=== PATIENT | female | born 1955 ===

== ENCOUNTER 2017-08-18 15:10 | Inpatient (IN) | payer MEDICARE, OTHER ==
[2017-08-18 15:11] VITALS: BMI 23.3
[2017-08-18 15:47] LABS: RBC URINE 1 /hpf (0-3); URINE BACTERIA RARE (<OCC); URINE BILIRUBIN NEGATIVE (NEGATIVE); URINE BLOOD NEGATIVE (NEGATIVE); URINE COLOR Yellow (YELLOW); URINE GLUCOSE (UA) NORMAL (Normal); URINE KETONE NEGATIVE (NEGATIVE); URINE LEUKOCYTE ESTERASE 1+ Leu/uL (Negative); URINE PROTEIN NEGATIVE (NEGATIVE); URINE UROBILINOGEN NORMAL mg/dL (0.2-1.0); WBC URINE 9 /hpf (0-5)
[2017-08-18] MEDS ORDERED: Sodium Chloride 0.9% 500 ML IV STA (16:10)
[2017-08-18] MEDS ORDERED: Sodium Chloride 0.9% 500 ML IV ONE (16:19)
[2017-08-18 16:34] LABS: BASO # 0.1 K/uL (0.0-0.2); BASO % 2.3 % (0.0-2.0); EOS # 0.2 K/uL (0.0-0.7); EOS % 3.7 % (0.0-4.0); HEMATOCRIT 41.9 % (34.0-47.0); LYMPH # 1.7 K/uL (1.0-4.3); LYMPH % 30.1 % (20.0-40.0); MEAN CELL VOLUME 92.5 fL (81.0-99.0); MEAN CORPUSCULAR HEMOGLOBIN 30.9 pg (27.0-31.0); MEAN CORPUSCULAR HGB CONC 33.4 g/dL (33.0-37.0); MEAN PLATELET VOLUME 8.1 fL (7.2-11.7); MONO # 0.4 K/uL (0.0-0.8); MONO % 6.9 % (0.0-10.0); RED CELL DISTRIBUTION WIDTH 13.3 % (11.5-14.5); WHITE BLOOD COUNT 5.8 K/uL (4.8-10.8)
[2017-08-18 16:46] LABS: ALB/GLOB RATIO 1.1 (1.0-2.1); ALKALINE PHOSPHATASE 62 U/L (38-126); ALT/SGPT 32 U/L (9-52); AST/SGOT 19 U/L (14-36); BILIRUBIN,TOTAL 0.5 mg/dL (0.2-1.3); BLOOD UREA NITROGEN 16 mg/dL (7-17); CALCIUM 8.4 mg/dl (8.6-10.4); CARBON DIOXIDE 30 mmol/L (22-30); CHLORIDE 104 mmol/L (98-107); GFR AFRICAN-AMERICAN > 60; GLUCOSE,RANDOM 127 mg/dL (65-105); POTASSIUM 3.6 mmol/L (3.6-5.2); SODIUM 140 mmol/L (132-148); TOTAL PROTEIN 7.2 g/dL (6.3-8.3)
--- NOTE | 2017-08-18 16:52 | C.PDOC ---
History Of Present Illness 61 year old female presents to the ED for evaluation of on going right flank and suprapubic pain for the past few months. Patient states she was seen in the ED for kidney stones in the past, but no record was found. Patient reports traveling to [place] and staying there for months unable to find a flight back. Patient states today pain is worse and that is why decided to come to the ED. Patient denies fever, nausea, vomit, diarrhea, cough. Time Seen by Provider: 08/18/17 15:23 Chief Complaint (Nursing): Back Pain History Per: Patient History/Exam Limitations: no limitations Onset/Duration Of Symptoms: Persistent Current Symptoms Are (Timing): Still Present Quality Of Discomfort: "Pain" Severity: Mild Previous Symptoms: Other (Right flank pain) Recent travel outside of the [place]: No Additional History Per: Patient Past Medical History Reviewed: Historical Data, Nursing Documentation, Vital Signs Vital Signs: Last Vital Signs Temp 97.5 F L 08/18/17 15:13 Pulse 64 08/18/17 17:04 Resp 18 08/18/17 17:04 BP 107/71 08/18/17 17:04 Pulse Ox 99 08/18/17 18:30 - Medical History PMH: Arthritis, Fibromyalgia, Fractures (right hip), Gastritis, Gall Bladder Disease, HTN Denies: Chronic Kidney Disease Surgical History: Appendectomy, Back Surgery, Cholecystectomy, Endoscopy Family History: States: Unknown Family Hx - Social History Hx Alcohol Use: No Hx Substance Use: No - Immunization History Hx Tetanus Toxoid Vaccination: No Hx Influenza Vaccination: Yes (06/2017) Hx Pneumococcal Vaccination: No Review Of Systems Constitutional: Negative for: Fever, Chills Cardiovascular: Negative for: Chest Pain Respiratory: Negative for: Cough, Shortness of Breath Gastrointestinal: Positive for: Abdominal Pain (Right flank pain). Negative for : Nausea, Vomiting Genitourinary: Negative for: Vaginal Discharge, Vaginal Bleeding Skin: Negative for: Rash Neurological: Negative for: Weakness, Numbness Physical Exam - Physical Exam Appears: Non-toxic, No Acute Distress Skin: Normal Color, Warm, Dry Head: Atraumatic, Normacephalic Nose: No Discharge Oral Mucosa: Moist Neck: Normal ROM, Supple Chest: Symmetrical Cardiovascular: Rhythm Regular, No Murmur Respiratory: Normal Breath Sounds, No Rales, No Rhonchi, No Wheezing Gastrointestinal/Abdominal: Soft, Tenderness (Suprapubic), No Guarding, No Rebound Back: CVA Tenderness (Right side) Extremity: Normal ROM, No Pedal Edema, No Deformity, No Swelling Neurological/Psych: Oriented x3, Normal Speech, Normal Cognition Gait: Steady ED Course And Treatment - Laboratory Results Result Diagrams: 08/18/17 16:30 08/18/17 16:30 O2 Sat by Pulse Oximetry: 99 (On RA) Pulse Ox Interpretation: Normal - CT Scan/US CT abdo/pelvis Other Rad Studies (CT/US): Interpreted By Me, Read By Radiologist, Radiology Report Reviewed CT/US Interpretation: PROCEDURE: CT Abdomen and Pelvis without intravenous contrast. HISTORY: Pain. COMPARISON: None. TECHNIQUE: Helical CT of the abdomen and pelvis was performed following oral contrast administration. Intravenous contrast was not administered as per referring physician request. Contrast Dose: None. Radiation dose: Total exam DLP = 535.10 mGy-cm. This CT exam was performed using one or more of the following dose reduction techniques : Automated exposure control, adjustment of the mA and/or kV according to patient size, and/or use of iterative reconstruction technique. FINDINGS: LOWER THORAX: Limited bilateral basilar atelectasis identified. LIVER: Tiny hepatic granuloma seen posteriorly with remainder of the liver appearing grossly nonfocal. GALLBLADDER AND BILE DUCTS: Prior cholecystectomy. PANCREAS : Unremarkable. No gross lesion or ductal dilatation. SPLEEN: Unremarkable. ADRENALS: Unremarkable. No mass. KIDNEYS AND URETERS: Right renal cysts are identified with none on the left. No obstructive uropathy or radiodense urolithiasis bilaterally. No definite perinephric reaction bilaterally. VASCULATURE: Unremarkable. No aortic aneurysm. BOWEL: Stomach is distended with retained food. Evaluation of bowel is limited due to minimal volume oral contrast ingested. No obstruction. No gross mural thickening. APPENDIX: Prior appendectomy suggested. Clinically correlate further. PERITONEUM: Unremarkable. No free fluid. No free air. LYMPH NODES: Unremarkable. No enlarged lymph nodes. BLADDER: Unremarkable. REPRODUCTIVE: Prior hysterectomy suggested. Clinically correlate further. BONES: Status post right total hip replacement. Artifacts obscure imaging through the pelvis. OTHER FINDINGS: None. IMPRESSION: No definite acute abdominal pelvic findings by standard unenhanced CT criteria. Patient status post multiple surgeries in the past including apparent cholecystectomy, hysterectomy and appendectomy with right hip replacement hardware in place. Clinically correlate further. Progress Note: Plan: -CT abdo/pelvis ordered. -Blood work ordered. -IV fluids given. -Urine culture collected. -UA ordered. Patient still c/o pain. Case was d/wPt's PMD who feels that patient failed an outpatient treatment and needs to be placed to Med/surg for observation. Disposition - Disposition Disposition: HOSPITALIZED Disposition Time: 18:30 Condition: FAIR Forms: [employer] (Turkish) - Clinical Impression Clinical Impression: Low back pain, UTI (urinary tract infection) - PA / MSWS / Resident Statement MD/DO has reviewed & agrees with the documentation as recorded. - Scribe Statement The provider has reviewed the documentation as recorded by the Scribe Jonathan Vargas All medical record entries made by the Scribe were at my direction and personally dictated by me. I have reviewed the chart and agree that the record accurately reflects my personal performance of the history, physical exam, medical decision making, and the department course for this patient. I have also personally directed, reviewed, and agree with the discharge instructions and disposition. Decision To Admit - Pt Status Changed To: Hospital Disposition Of: Observation - . Bed Request Type: Regular Admitting Physician: Delmar Ring Jr. Patient Diagnosis: Low back pain, UTI (urinary tract infection)
--- NOTE | 2017-08-18 17:47 | CT ---
PROCEDURE: CT Abdomen and Pelvis without intravenous contrast HISTORY: Pain COMPARISON: None. TECHNIQUE: Helical CT of the abdomen and pelvis was performed following oral contrast administration. Intravenous contrast was not administered as per referring physician request. Contrast Dose: None Radiation dose: Total exam DLP = 535.10 mGy-cm. This CT exam was performed using one or more of the following dose reduction techniques: Automated exposure control, adjustment of the mA and/or kV according to patient size, and/or use of iterative reconstruction technique. FINDINGS: LOWER THORAX: Limited bilateral basilar atelectasis identified. LIVER: Tiny hepatic granuloma seen posteriorly with remainder of the liver appearing grossly nonfocal. GALLBLADDER AND BILE DUCTS: Prior cholecystectomy. PANCREAS: Unremarkable. No gross lesion or ductal dilatation. SPLEEN: Unremarkable. ADRENALS: Unremarkable. No mass. KIDNEYS AND URETERS: Right renal cysts are identified with none on the left. No obstructive uropathy or radiodense urolithiasis bilaterally. No definite perinephric reaction bilaterally. VASCULATURE: Unremarkable. No aortic aneurysm. BOWEL: Stomach is distended with retained food. Evaluation of bowel is limited due to minimal volume oral contrast ingested. No obstruction. No gross mural thickening. APPENDIX: Prior appendectomy suggested. Clinically correlate further. PERITONEUM: Unremarkable. No free fluid. No free air. LYMPH NODES: Unremarkable. No enlarged lymph nodes. BLADDER: Unremarkable. REPRODUCTIVE: Prior hysterectomy suggested. Clinically correlate further. BONES: Status post right total hip replacement. Artifacts obscure imaging through the pelvis. OTHER FINDINGS: None. IMPRESSION: No definite acute abdominal pelvic findings by standard unenhanced CT criteria. Patient status post multiple surgeries in the past including apparent cholecystectomy, hysterectomy and appendectomy with right hip replacement hardware in place. Clinically correlate further.
--- NOTE | 2017-08-18 19:54 | CP.PCM.HP ---
History of Present Illness - History of Present Illness History of Present Illness: CC: Suprapubic pain and bilateral flank pain HPI: Patient is a 61 year old female with past medical history of arthritis, Fibromyalgia, Fractures (right hip), Gastritis, Gall stones, anxiety, depression , lumbar nerve impingement, back lipoma, lupus who presents with suprapubic and bilateral flank pain that has been going on for 1month and 2 weeks. Patient was seen by her PMD, Dr. soto and was treated for UTI. Patient states that 7 years ago she was diagnosed with kidney stones in [place] and the stones were removed. Patient states that after finishing the antibiotics prescribed for her recent UTI, she continues to have suprapubic pain and flank pain, rating it a 8/ 10 on the pain scale. Patient states she had hematuria a month ago and was scheduled to see a urologist. During the encounter, patient states she has pressure upon urinating and urinates small amount and unable to empty her bladder fully. Patient admits to dysuria, pressure with urinating, back pain, shoulder pain, abdominal pain but denies nausea, vomiting, fever and chills. PMD: Dr. Soto PMHx: Arthritis, Fibromyalgia, Fractures (right hip), Gastritis, Gall stones, anxiety, depression, lumbar nerve impingement, back lipoma, lupus PSHx: Appendectomy, Back Surgery, Cholecystectomy, Endoscopy, colonscopy and lipoma removal, right hip replacement FHx: DM, HTN, heart disease Medications: Does not recall Allergies: NKDA Social Hx. denies tobacco, alcohol and illicit drug use Present on Admission - Present on Admission Any Indicators Present on Admission: No Review of Systems - Constitutional Constitutional: absent: Chills, Fever, Headache, Weakness - EENT Eyes: absent: Blurred Vision, Change in Vision - Cardiovascular Cardiovascular: Radiating Pain. absent: Chest Pain, Chest Pain at Rest, Chest Pain with Activity, Dyspnea, Dyspnea on Exertion, Lightheadedness, Palpitations , Pedal Edema - Respiratory Respiratory: absent: Cough, Dyspnea, Dyspnea on Exertion - Gastrointestinal Gastrointestinal: Abdominal Pain. absent: Constipation, Diarrhea, Nausea, Vomiting - Genitourinary Genitourinary: Difficulty Urinating, Dysuria, Flank Pain, Hematuria, Urinary Hesitance, Hx Renal/Bladder Calculi - Reproductive: Female Reproductive:Female: S/P Hysterectomy - Musculoskeletal Musculoskeletal: Arthralgias - Neurological Neurological: absent: Dizziness, Headaches, Syncope, Weakness - Psychiatric Psychiatric: Anxiety - Endocrine Endocrine: absent: Fatigue, Palpitations Past Patient History - Past Medical History & Family History Past Medical History?: Yes - Past Social History Smoking Status: Never Smoked - CARDIAC Hx Hypertension: Yes - PULMONARY Hx Respiratory Disorders: No - NEUROLOGICAL Hx Neurological Disorder: Yes - HEENT Hx HEENT Problems: No - RENAL Hx Chronic Kidney Disease: No - ENDOCRINE/METABOLIC Hx Endocrine Disorders: Yes Hx Systemic Lupus Erythematosus: Yes - HEMATOLOGICAL/ONCOLOGICAL Hx Blood Disorders: No - INTEGUMENTARY Hx Dermatological Problems: No - MUSCULOSKELETAL/RHEUMATOLOGICAL Hx Arthritis: Yes Hx Fractures: Yes (right hip) - GASTROINTESTINAL Hx Gall Bladder Disease: Yes Hx Gastritis: Yes - GENITOURINARY/GYNECOLOGICAL Hx Genitourinary Disorders: No - PSYCHIATRIC Hx Substance Use: No - SURGICAL HISTORY Hx Appendectomy: Yes Hx Cholecystectomy: Yes - ANESTHESIA Hx Anesthesia: Yes Hx Anesthesia Reactions: No Hx Malignant Hyperthermia: No Meds Allergies/Adverse Reactions: Allergies Allergy/AdvReac Type Severity Reaction Status Date / Time No Known Allergies Allergy Verified 08/18/17 15:18 Physical Exam - Constitutional Appears: No Acute Distress - Head Exam Head Exam: ATRAUMATIC - Eye Exam Eye Exam: EOMI, Normal appearance - ENT Exam ENT Exam: Mucous Membranes Dry - Respiratory Exam Respiratory Exam: Clear to Auscultation Bilateral, NORMAL BREATHING PATTERN - Cardiovascular Exam Cardiovascular Exam: REGULAR RHYTHM, +S1, +S2 - GI/Abdominal Exam GI & Abdominal Exam: Normal Bowel Sounds, Soft, Tenderness - Extremities Exam Extremities exam: Positive for: normal inspection. Negative for: calf tenderness, pedal edema - Back Exam Back exam: CVA tenderness (L), CVA tenderness (R) - Neurological Exam Neurological exam: Alert, Oriented x3 - Psychiatric Exam Psychiatric exam: Anxious, Normal Affect - Skin Skin Exam: Normal Color Results - Vital Signs Recent Vital Signs: Last Vital Signs Temp 98.3 F 08/18/17 19:17 Pulse 69 08/18/17 19:17 Resp 18 08/18/17 19:17 BP 125/88 08/18/17 19:17 Pulse Ox 97 08/18/17 19:17 - Labs Result Diagrams: 08/18/17 16:30 08/18/17 16:30 Labs: Laboratory Results - last 24 hr 12/11/3008/18/17 08/18/17 15:33 16:30 16:30 WBC 5.8 RBC 4.53 Hgb 14.0 Hct 41.9 MCV 92.5 D MCH 30.9 MCHC 33.4 RDW 13.3 Plt Count 241 MPV 8.1 Neut % (Auto) 57.0 Lymph % (Auto) 30.1 [place] % (Auto) 6.9 Eos % (Auto) 3.7 Baso % (Auto) 2.3 H Neut # 3.3 Lymph # 1.7 [place] # 0.4 Eos # 0.2 Baso # 0.1 Sodium 140 Potassium 3.6 Chloride 104 Carbon Dioxide 30 Anion Gap 10 BUN 16 Creatinine 0.6 L Est GFR ( Amer) > 60 Est GFR (Non-Af Amer) > 60 Random Glucose 127 H Calcium 8.4 L Total Bilirubin 0.5 AST 19 ALT 32 Alkaline Phosphatase 62 Total Protein 7.2 Albumin 3.8 Globulin 3.4 Albumin/Globulin Ratio 1.1 Urine Color Yellow Urine Clarity Clear Urine pH 5.0 Ur Specific [place] 1.023 Urine Protein Negative Urine Glucose (UA) Normal Urine Ketones Negative Urine Blood Negative Urine Nitrate Negative Urine Bilirubin Negative Urine Urobilinogen Normal Ur Leukocyte Esterase 1+ H Urine WBC (Auto) 9 H Urine RBC (Auto) 1 Ur Squamous Epith Cells 1 Urine Bacteria Rare Assessment & Plan (1) UTI (urinary tract infection) Assessment and Plan: On admission: UA: Negative F/u UC Medications given in the ER: * Rocephin 1gm once * Dilaudid 2gm once Status: Acute (2) Flank pain Assessment and Plan: R/O Nephroliathiasis or obstructive uropathy CT abdomen and pelvis: No definite acute abdominal pelvic findings by standard unenhanced CT criteria. Patient status post multiple surgeries in the past including apparent cholecystectomy, hysterectomy and appendectomy with right hip replacement hardware in place. Clinically correlate further. Right renal cysts are identified with none on the left. No obstructive uropathy or radiodense urolithiasis bilaterally. No definite perinephric reaction bilaterally. Status: Acute (3) Low back pain Assessment and Plan: Dilaudid 0.5mg IV Q6H prn Status: Acute (4) History of hypertension Assessment and Plan: Continue home medications: * Norvasc 10mg PO daily * Valsartan 160mg PO Daily Status: Acute (5) History of gastroesophageal reflux (GERD) Assessment and Plan: Continue home medications: * Protonix 40mg po daily Status: Acute (6) History of psychiatric disorder Assessment and Plan: Continue home medications: * Paxil 60mg PO daily * Klonopin 0.5mg PO TID Status: Acute (7) Prophylactic measure Assessment and Plan: GI: Protonix 40mg PO daily DVT: SCDs Status: Acute
[2017-08-18] MEDS: HYDROmorphone 0.5 mg/0.5 ml ISec IVP PRN (22:30)
[2017-08-19] MEDS ORDERED: Influenza Vaccine 60 mcg/0.5 mL SYR (4YR UP) IM ONE (01:35)
[2017-08-19] MEDS: HYDROmorphone 0.5 mg/0.5 ml ISec IVP PRN ×4 (05:15→23:41)
[2017-08-19 07:43] LABS: BASO % 0.5 % (0.0-2.0); EOS # 0.2 K/uL (0.0-0.7); EOS % 3.8 % (0.0-4.0); LYMPH # 1.8 K/uL (1.0-4.3); LYMPH % 36.2 % (20.0-40.0); MEAN CELL VOLUME 92.3 fL (81.0-99.0); MEAN CORPUSCULAR HEMOGLOBIN 31.5 pg (27.0-31.0); MEAN CORPUSCULAR HGB CONC 34.1 g/dL (33.0-37.0); MEAN PLATELET VOLUME 8.4 fL (7.2-11.7); MONO # 0.4 K/uL (0.0-0.8); MONO % 8.9 % (0.0-10.0); NRBC % 0.2 % (0.0-2.0); RED CELL DISTRIBUTION WIDTH 13.3 % (11.5-14.5); WHITE BLOOD COUNT 4.9 K/uL (4.8-10.8)
[2017-08-19 08:27] LABS: ALB/GLOB RATIO 1.6 (1.0-2.1); ALKALINE PHOSPHATASE 56 U/L (38-126); ALT/SGPT 27 U/L (9-52); AST/SGOT 18 U/L (14-36); BILIRUBIN,TOTAL 0.5 mg/dL (0.2-1.3); BLOOD UREA NITROGEN 10 mg/dL (7-17); CARBON DIOXIDE 29 mmol/L (22-30); CHLORIDE 105 mmol/L (98-107); GFR AFRICAN-AMERICAN > 60; GLUCOSE,RANDOM 113 mg/dL (65-105); MAGNESIUM 1.6 mg/dL (1.6-2.3); PHOSPHOROUS 3.5 mg/dL (2.5-4.5); POTASSIUM 3.9 mmol/L (3.6-5.2); SODIUM 142 mmol/L (132-148); TOTAL PROTEIN 5.7 g/dL (6.3-8.3)
[2017-08-19] MEDS: Pantoprazole 40 mg EC Tab PO SCH (09:46)
--- NOTE | 2017-08-19 13:06 | CP.PCM.PN ---
Subjective - Date & Time of Evaluation Date of Evaluation: 08/19/17 Time of Evaluation: 09:00 - Subjective Subjective: Medicine Note (PGY-1)---> Dr. Ring's note Patient was seen and examined at bedside. Patient still admits to suprapubic pain and not being able to empty her bladder fully. Patient denies chest pain, palpitations, SOB, fever, chills, nausea and vomiting. Objective - Vital Signs/Intake and Output Vital Signs (last 24 hours): Temp Pulse Resp BP Pulse Ox 97.9 F 61 20 102/67 97 08/19/17 08:02 08/19/17 08:02 08/19/17 08:02 08/19/17 08:02 08/19/17 08:02 Intake and Output: 08/19/17 08/19/17 06:59 18:59 Intake Total 200 Balance 200 - Medications Medications: Current Medications Amlodipine Besylate (Norvasc) 10 mg PO DAILY REPLACED BY [facility] Last Admin: 08/19/17 09:44 Dose: 10 mg Clonazepam (Klonopin) 0.5 mg PO TID REPLACED BY [facility] Last Admin: 08/19/17 09:44 Dose: 0.5 mg Hydromorphone HCl (Dilaudid) 0.5 mg IVP Q6H PRN PRN Reason: Pain, severe (8-10) Last Admin: 08/19/17 11:05 Dose: 0.5 mg Ibuprofen (Motrin Tab) 600 mg PO Q4H PRN PRN Reason: Pain, moderate (4-7) Losartan Potassium (Cozaar) 100 mg PO DAILY REPLACED BY [facility] Last Admin: 08/19/17 09:46 Dose: 100 mg Pantoprazole Sodium (Protonix Ec Tab) 40 mg PO DAILY REPLACED BY [facility] Last Admin: 08/19/17 09:46 Dose: 40 mg Paroxetine HCl (Paxil) 60 mg PO DAILY REPLACED BY [facility] Last Admin: 08/19/17 09:45 Dose: 60 mg Pneumococcal Polyvalent Vaccine (Pneumovax 23 Vaccine) 0.5 ml IM .ONCE ONE Stop: 08/21/17 10:01 - Labs Labs: 08/19/17 07:15 08/19/17 07:15 - Constitutional Appears: Well, No Acute Distress - Head Exam Head Exam: ATRAUMATIC - Eye Exam Eye Exam: EOMI, Normal appearance - ENT Exam ENT Exam: Mucous Membranes Moist - Respiratory Exam Respiratory Exam: Clear to Ausculation Bilateral, NORMAL BREATHING PATTERN - Cardiovascular Exam Cardiovascular Exam: REGULAR RHYTHM, +S1, +S2 - GI/Abdominal Exam GI & Abdominal Exam: Soft, Normal Bowel Sounds - Extremities Exam Extremities Exam: Normal Inspection. absent: Calf Tenderness, Pedal Edema - Neurological Exam Neurological Exam: Alert, Awake, Oriented x3 - Psychiatric Exam Psychiatric exam: Normal Affect, Normal Mood - Skin Skin Exam: Normal Color Assessment and Plan (1) UTI (urinary tract infection) Assessment & Plan: On admission: UA: Negative UC: Negative Medications given in the ER: * Rocephin 1gm once * Dilaudid 2gm once Status: Acute (2) Suprapubic pain, acute Assessment & Plan: Urology Consult, Dr. Lucas Gonzalez On admission: UA: Negative UC: Negative Medication/Management: * Pyridium 100mg po daily Status: Acute (3) Overflow incontinence Assessment & Plan: Urology Consult, Dr. Lucas Gonzalez * Management as per recommendation Medication/Management Flomax 0.4mg PO daily Status: Acute (4) Flank pain Assessment & Plan: R/O Nephroliathiasis or obstructive uropathy CT abdomen and pelvis: No definite acute abdominal pelvic findings by standard unenhanced CT criteria. Patient status post multiple surgeries in the past including apparent cholecystectomy, hysterectomy and appendectomy with right hip replacement hardware in place. Clinically correlate further. Right renal cysts are identified with none on the left. No obstructive uropathy or radiodense urolithiasis bilaterally. No definite perinephric reaction bilaterally. Status: Acute (5) Low back pain Assessment & Plan: Dilaudid 0.5mg IV Q6H prn Status: Chronic (6) History of hypertension Assessment & Plan: Continue home medications: * Norvasc 10mg PO daily * Valsartan 160mg PO Daily Status: Acute (7) History of gastroesophageal reflux (GERD) Assessment & Plan: Continue home medications: * Protonix 40mg po daily Status: Acute (8) History of psychiatric disorder Assessment & Plan: Continue home medications: * Paxil 60mg PO daily * Klonopin 0.5mg PO TID Status: Acute (9) Prophylactic measure Assessment & Plan: GI: Protonix 40mg PO daily DVT: SCDs Status: Acute
[2017-08-20 06:43] LABS: BASO % 0.7 % (0.0-2.0); EOS # 0.2 K/uL (0.0-0.7); EOS % 4.2 % (0.0-4.0); HEMATOCRIT 41.7 % (34.0-47.0); LYMPH # 1.7 K/uL (1.0-4.3); LYMPH % 34.8 % (20.0-40.0); MEAN CELL VOLUME 91.9 fL (81.0-99.0); MEAN CORPUSCULAR HEMOGLOBIN 31.5 pg (27.0-31.0); MEAN CORPUSCULAR HGB CONC 34.3 g/dL (33.0-37.0); MEAN PLATELET VOLUME 8.1 fL (7.2-11.7); MONO # 0.4 K/uL (0.0-0.8); NRBC % 0.2 % (0.0-2.0); RED CELL DISTRIBUTION WIDTH 12.9 % (11.5-14.5)
[2017-08-20] MEDS: HYDROmorphone 0.5 mg/0.5 ml ISec IVP PRN ×2 (06:43→12:52)
[2017-08-20 07:01] LABS: ALB/GLOB RATIO 1.1 (1.0-2.1); ALKALINE PHOSPHATASE 75 U/L (38-126); ALT/SGPT 32 U/L (9-52); AST/SGOT 15 U/L (14-36); BILIRUBIN,TOTAL 0.4 mg/dL (0.2-1.3); BLOOD UREA NITROGEN 11 mg/dL (7-17); CALCIUM 8.2 mg/dl (8.6-10.4); CARBON DIOXIDE 32 mmol/L (22-30); CHLORIDE 102 mmol/L (98-107); GFR AFRICAN-AMERICAN > 60; GLUCOSE,RANDOM 108 mg/dL (65-105); MAGNESIUM 1.7 mg/dL (1.6-2.3); PHOSPHOROUS 3.7 mg/dL (2.5-4.5); POTASSIUM 3.7 mmol/L (3.6-5.2); SODIUM 140 mmol/L (132-148); TOTAL PROTEIN 7.1 g/dL (6.3-8.3)
[2017-08-20] MEDS: Pantoprazole 40 mg EC Tab PO SCH (09:13)
[2017-08-20 16:52] VITALS: RESP 20
--- NOTE | 2017-08-20 17:20 | CP.PCM.DIS ---
Provider - Provider Date of Admission: 08/18/17 18:30 Attending physician: Delmar Soto Jr, MD Time Spent in preparation of Discharge (in minutes): 35 Diagnosis - Discharge Diagnosis (1) UTI (urinary tract infection) Status: Acute (2) Suprapubic pain, acute Status: Acute (3) Overflow incontinence Status: Acute (4) Flank pain Status: Acute (5) Low back pain Status: Chronic (6) History of hypertension Status: Acute (7) History of gastroesophageal reflux (GERD) Status: Acute (8) History of psychiatric disorder Status: Acute (9) Prophylactic measure Status: Acute Hospital Course - Lab Results Lab Results: Micro Results 08/18/17 16:40 Urine Urine Culture - Final No Growth (<1,000 CFU/ML) Most Recent Lab Values WBC 5.0 K/uL (4.8-10.8) 08/20/17 06:24 RBC 4.54 Mil/uL (3.80-5.20) 08/20/17 06:24 Hgb 14.3 g/dL (11.0-16.0) 08/20/17 06:24 Hct 41.7 % (34.0-47.0) 08/20/17 06:24 MCV 91.9 fL (81.0-99.0) 08/20/17 06:24 MCH 31.5 pg (27.0-31.0) H 08/20/17 06:24 MCHC 34.3 g/dL (33.0-37.0) 08/20/17 06:24 RDW 12.9 % (11.5-14.5) 08/20/17 06:24 Plt Count 263 K/uL (130-400) 08/20/17 06:24 MPV 8.1 fL (7.2-11.7) 08/20/17 06:24 Neut % (Auto) 52.3 % (50.0-75.0) 08/20/17 06:24 Lymph % (Auto) 34.8 % (20.0-40.0) 08/20/17 06:24 [place] % (Auto) 8.0 % (0.0-10.0) 08/20/17 06:24 Eos % (Auto) 4.2 % (0.0-4.0) H 08/20/17 06:24 Baso % (Auto) 0.7 % (0.0-2.0) 08/20/17 06:24 Neut # 2.6 K/uL (1.8-7.0) 08/20/17 06:24 Lymph # 1.7 K/uL (1.0-4.3) 08/20/17 06:24 [place] # 0.4 K/uL (0.0-0.8) 08/20/17 06:24 Eos # 0.2 K/uL (0.0-0.7) 08/20/17 06:24 Baso # 0.0 K/uL (0.0-0.2) 08/20/17 06:24 Sodium 140 mmol/L (132-148) 08/20/17 06:24 Potassium 3.7 mmol/L (3.6-5.2) 08/20/17 06:24 Chloride 102 mmol/L (98-107) 08/20/17 06:24 Carbon Dioxide 32 mmol/L (22-30) H 08/20/17 06:24 Anion Gap 9 (10-20) L 08/20/17 06:24 BUN 11 mg/dL (7-17) 08/20/17 06:24 Creatinine 0.6 mg/dL (0.7-1.2) L 08/20/17 06:24 Est GFR ( Amer) > 60 08/20/17 06:24 Est GFR (Non-Af Amer) > 60 08/20/17 06:24 Random Glucose 108 mg/dL (65-105) H 08/20/17 06:24 Calcium 8.2 mg/dl (8.6-10.4) L 08/20/17 06:24 Phosphorus 3.7 mg/dL (2.5-4.5) 08/20/17 06:24 Magnesium 1.7 mg/dL (1.6-2.3) 08/20/17 06:24 Total Bilirubin 0.4 mg/dL (0.2-1.3) 08/20/17 06:24 AST 15 U/L (14-36) 08/20/17 06:24 ALT 32 U/L (9-52) 08/20/17 06:24 Alkaline Phosphatase 75 U/L (38-126) 08/20/17 06:24 Total Protein 7.1 g/dL (6.3-8.3) 08/20/17 06:24 Albumin 3.7 g/dL (3.5-5.0) 08/20/17 06:24 Globulin 3.4 gm/dL (2.2-3.9) 08/20/17 06:24 Albumin/Globulin Ratio 1.1 (1.0-2.1) 08/20/17 06:24 Urine Color Yellow (YELLOW) 08/18/17 15:33 Urine Clarity Clear (Clear) 08/18/17 15:33 Urine pH 5.0 (5.0-8.0) 08/18/17 15:33 Ur Specific [place] 1.023 (1.003-1.030) 08/18/17 15:33 Urine Protein Negative mg/dL (NEGATIVE) 08/18/17 15:33 Urine Glucose (UA) Normal mg/dL (Normal) 08/18/17 15:33 Urine Ketones Negative mg/dL (NEGATIVE) 08/18/17 15:33 Urine Blood Negative (NEGATIVE) 08/18/17 15:33 Urine Nitrate Negative (NEGATIVE) 08/18/17 15:33 Urine Bilirubin Negative (NEGATIVE) 08/18/17 15:33 Urine Urobilinogen Normal mg/dL (0.2-1.0) 08/18/17 15:33 Ur Leukocyte Esterase 1+ Robin/uL (Negative) H 08/18/17 15:33 Urine WBC (Auto) 9 /hpf (0-5) H 08/18/17 15:33 Urine RBC (Auto) 1 /hpf (0-3) 08/18/17 15:33 Ur Squamous Epith Cells 1 /hpf (0-5) 08/18/17 15:33 Urine Bacteria Rare (<OCC) 08/18/17 15:33 - Hospital Course Hospital Course: HPI (As per admission): Patient is a 61 year old female with past medical history of arthritis, Fibromyalgia, Fractures (right hip), Gastritis, Gall stones, anxiety, depression , lumbar nerve impingement, back lipoma, lupus who presents with suprapubic and bilateral flank pain that has been going on for 1month and 2 weeks. Patient was seen by her PMD, Dr. soto and was treated for UTI. Patient states that 7 years ago she was diagnosed with kidney stones in [place] and the stones were removed. Patient states that after finishing the antibiotics prescribed for her recent UTI, she continues to have suprapubic pain and flank pain, rating it a 8/ 10 on the pain scale. Patient states she had hematuria a month ago and was scheduled to see a urologist. During the encounter, patient states she has pressure upon urinating and urinates small amount and unable to empty her bladder fully. Patient admits to dysuria, pressure with urinating, back pain, shoulder pain, abdominal pain but denies nausea, vomiting, fever and chills. Hospital Course: Patient was admitted for observation with the diagnosis of suprapubic pain and r /o urinary tract infection. Patient was managed with appropriate medication and pain was controlled. Patient was deemed stable and was cleared for discharge upon negative work-up and as per medical team. Pertinent imaging/Labs: UA: Negative UC: No growth CT abdomen and pelvis: No definite acute abdominal pelvic findings by standard unenhanced CT criteria. Patient status post multiple surgeries in the past including apparent cholecystectomy, hysterectomy and appendectomy with right hip replacement hardware in place. Clinically correlate further. Right renal cysts are identified with none on the left. No obstructive uropathy or radiodense urolithiasis bilaterally. No definite perinephric reaction bilaterally. This is a summary of events. For a complete course, please refer to the medical records. Discharge Exam - Head Exam Head Exam: ATRAUMATIC - Eye Exam Eye Exam: EOMI, Normal appearance - ENT Exam ENT Exam: Mucous Membranes Moist - Respiratory Exam Respiratory Exam: Clear to PA & Lateral, NORMAL BREATHING PATTERN - Cardiovascular Exam Cardiovascular Exam: REGULAR RHYTHM, +S1, +S2 - GI/Abdominal Exam GI & Abdominal Exam: Normal Bowel Sounds, Soft. absent: Tenderness - Extremities Exam Extremities exam: normal inspection - Back Exam Additional comments: Back pain - Neurological Exam Neurological exam: Alert, Oriented x3 - Psychiatric Exam Psychiatric exam: Anxious, Normal Affect - Skin Skin Exam: Normal Color Discharge Plan - Discharge Medications Prescriptions: Phenazopyridine HCl [Pyridium] 200 mg PO DAILY PRN #10 tablet PRN Reason: Burning Urination Tamsulosin HCl [Flomax] 0.4 mg PO DAILY #30 cap.er.24h - Follow Up Plan Condition: FAIR Disposition: HOME/ ROUTINE Additional Instructions: Please discharge patient home as per Dr. Soto Please start the following medications: 1. Pyridium 100mg PO daily 2. Flomax 0.4mg PO daily Please resumes all your home medications as prescribed by your PMD, Please follow up with your PMD, Dr. Soto in 5 days Please follow up with urology within a week as instructed by Dr. Soto Please return to the ED or hospital if symptoms worsen or resumes
--- NOTE | 2017-08-20 23:01 | PCM.URO ---
Urology Progress Note - Subjective Nausea: Yes - Objective Lab Results Last 24 Hours: Laboratory Results - last 24 hr 08/20/17 08/20/17 06:24 06:24 WBC 5.0 RBC 4.54 Hgb 14.3 Hct 41.7 MCV 91.9 MCH 31.5 H MCHC 34.3 RDW 12.9 Plt Count 263 MPV 8.1 Neut % (Auto) 52.3 Lymph % (Auto) 34.8 [place] % (Auto) 8.0 Eos % (Auto) 4.2 H Baso % (Auto) 0.7 Neut # 2.6 Lymph # 1.7 [place] # 0.4 Eos # 0.2 Baso # 0.0 Sodium 140 Potassium 3.7 Chloride 102 Carbon Dioxide 32 H Anion Gap 9 L BUN 11 Creatinine 0.6 L Est GFR ( Amer) > 60 Est GFR (Non-Af Amer) > 60 Random Glucose 108 H Calcium 8.2 L Phosphorus 3.7 Magnesium 1.7 Total Bilirubin 0.4 AST 15 ALT 32 Alkaline Phosphatase 75 Total Protein 7.1 Albumin 3.7 Globulin 3.4 Albumin/Globulin Ratio 1.1 Intake & Output: Intake & Output 08/20/17 08/20/17 08/21/17 06:59 18:59 06:59 Intake Total 450 Balance 450 Intake: Oral 450 Other: # Voids Urine, Voided 4 # Bowel Movements 1 Vital Signs: Vital Signs - 24 hr 08/19/17 08/20/17 08/20/17 23:25 08:34 13:30 Temperature 98 F 97.8 F Pulse Rate 70 72 70 Respiratory 20 21 Rate Blood Pressure 107/67 101/67 110/70 O2 Sat by Pulse 97 98 97 Oximetry 08/20/17 08/20/17 16:50 18:10 Temperature 97.7 F 98.8 F Pulse Rate 75 Respiratory 20 Rate Blood Pressure 98/63 L O2 Sat by Pulse 95 Oximetry
[2017-08-21] MEDS ORDERED: Pneumococcal 23-Valent Vaccine IM ONE (10:00)
[2017-08-21] MEDS: Pantoprazole 40 mg EC Tab PO SCH (10:33)
--- NOTE | 2017-08-21 13:29 | CON ---
DATE: 08/20/2017 REASON FOR CONSULTATION: Possible urinary tract infection. HISTORY OF PRESENT ILLNESS: Mrs. Martin is admitted to Dr. Ring with abdominal pain and flank pain. She was actually slated discharge and then is feeling nausea. She had a CT scan, there is no obvious evidence of stone disease. The patient is complaining of dysuria and suprapubic discomfort. See below. PAST MEDICAL AND SURGICAL HISTORY: As listed in the chart. Otherwise, unremarkable from Urology standpoint. REVIEW OF SYSTEMS: No weight loss, chest pain, or the like. Just generalized complaints. MEDICATIONS: See the chart. ALLERGIES: NO KNOWN DRUG ALLERGIES. PHYSICAL EXAMINATION: GENERAL: A well-nourished female, in no apparent distress. VITAL SIGNS: She is about 5 feet 7 inches. Her weight is about 165 pounds. LUNGS: Clear. HEART: Normal S1 and S2. ABDOMEN: Overall soft, not really grossly distended. No real CVA tenderness. PELVIC: Deferred at this point. LABORATORY DATA: See chart. CT scan, no obvious stone seen. DIAGNOSES: Abdominal pain, suprapubic pain and discomfort and nausea, and no real costovertebral angle tenderness. The possibilities exist as multiple etiologies, possible abdominal pain, GI-related, possible urinary tract infection, suspicious for the urinary tract infection. PLAN: As follow, we are going to do a urine culture and once this sample obtained, we will plan to start antibiotic orally and then we will follow the patient clinically. Most likely the patient could be followed as an outpatient once she is stabilized. From Urology standpoint, there are no acute issues. Regarding the nausea, this also needs to be resolved. Then, further plans can follow, we will follow along. Thanks for the Urology consult. Janak Gonzalez MD
--- NOTE | 2017-08-21 14:57 | US ---
PROCEDURE: Ultrasound of the Kidneys HISTORY: back pain. negative ct/ RETENTION COMPARISON: None available. TECHNIQUE: Sonogram of the kidneys. FINDINGS: RIGHT KIDNEY: Measures: 10.3 x 5.2 x 5.7 cm. No obstructing calculus or hydronephrosis identified. 3.1 x 3.3 x 3.2 cm right midpole cyst. 1.3 x 1.1 x 1.1 cm right midpole cyst. LEFT KIDNEY: Measures: 9.8 x 5.1 x 5.6 cm. No obstructing calculus or hydronephrosis identified. OTHER FINDINGS: None. IMPRESSION: 3.1 x 3.3 x 3.2 cm right midpole cyst. 1.3 x 1.1 x 1.1 cm right midpole cyst.
[2017-08-21 17:07] VITALS: BP 108/70; PULSE 91; TEMP 98.1; O2SAT 96
--- NOTE | 2017-08-23 00:04 | PCM.URO ---
Urology Progress Note - General General: Tolerating Diet - Subjective Abdominal Pain: Yes Flank Pain: Yes (L) Nausea: No Vomiting: No Voiding Well: Yes Hematuria: No Stone Passed: No Dsypnea: No Chest Pain: No Fever & Chills: No - Objective Imaging Studies: Reviewed (MARIA TERESA reveals two R renal cysts No obstruction No tumor ) - Physical Exam Abdominal Exam: Soft, Non-Tender, Non-Distended Back: No CVA Tenderness - Plan Additional Information: Imp: improved overall. urologically stable. R renal cysts. Sterile urine (no growth on culture) - Date & Time of Note Date: 08/21/17 Time: 12:15
== END 2017-08-21 18:00 | disposition home or self-care (01) | DRG 690 ==
LOC: C.ER 15:10 → C.9E 18:30 → C.3T 19:17 → OBSVTOIN 08-20 19:37
PROVIDERS: ADMIT Internal Medicine; ATTEND Internal Medicine
DX: N39.0 Urinary tract infection, site not specified (principal); M32.9 Systemic lupus erythematosus, unspecified; E11.9 Type 2 diabetes mellitus without complications; I10 Essential (primary) hypertension; M79.7 Fibromyalgia; N39.490 Overflow incontinence; Z87.442 Personal history of urinary calculi

== ENCOUNTER 2017-09-06 07:00 | Emergency (ER) | payer MEDICARE, OTHER ==
[2017-09-06 07:01] VITALS: BMI 23.3
[2017-09-06] MEDS ORDERED: Oxycodone/Acetaminophen 5/325 mg Tab PO STA (07:24)
--- NOTE | 2017-09-06 07:25 | C.PDOC ---
History Of Present Illness 62 y/o female with PMHx of chronic back pain, arthritis and right hip replacement presents to ED with non productive cough and generalized body aches for 2 days. Patient admits to falling and landing on knees 3 days ago and currently complains of pain to bilateral knees. Patient reports worse right hip pain but denies recent injury to hip, numbness, weakness or any other complaints at this time. Time Seen by Provider: 09/06/17 07:15 Chief Complaint (Nursing): Flu-like Symptoms History Per: Patient History/Exam Limitations: no limitations Onset/Duration Of Symptoms: Days Current Symptoms Are (Timing): Still Present Associated Symptoms: Cough Past Medical History Reviewed: Historical Data, Nursing Documentation, Vital Signs Vital Signs: Last Vital Signs Temp 98.0 F 09/06/17 08:40 Pulse 79 09/06/17 08:40 Resp 18 09/06/17 08:40 BP 122/78 09/06/17 08:40 Pulse Ox 96 09/06/17 08:40 - Medical History PMH: Anxiety, Arthritis (BACK B/L KNEES R HIP), Fibromyalgia, Fractures (right hip), Gastritis, Gall Bladder Disease, HTN, Kidney Stones, Chronic Kidney Disease Surgical History: Appendectomy, Back Surgery, Cholecystectomy, Endoscopy Family History: States: No Known Family Hx - Social History Hx Alcohol Use: Yes Hx Substance Use: No - Immunization History Hx Tetanus Toxoid Vaccination: No Hx Influenza Vaccination: Yes (06/2017) Hx Pneumococcal Vaccination: No Review Of Systems Constitutional: Negative for: Fever, Chills ENT: Negative for: Nose Congestion Cardiovascular: Negative for: Chest Pain Respiratory: Positive for: Cough. Negative for: Shortness of Breath Gastrointestinal: Negative for: Nausea, Vomiting Musculoskeletal: Positive for: Leg Pain Skin: Negative for: Rash Neurological: Negative for: Weakness, Numbness Physical Exam - Physical Exam Appears: Non-toxic, No Acute Distress Skin: Warm, Dry, Ecchymosis (To right knee) Head: Atraumatic, Normacephalic Eye(s): bilateral: Normal Inspection, EOMI Ear(s): Bilateral: Normal Nose: Normal, No Flaring, No Discharge Oral Mucosa: Moist Throat: Normal, No Erythema, No Exudate, No Drooling, No Mass Neck: Normal ROM, Supple Chest: Symmetrical Cardiovascular: Rhythm Regular Respiratory: Normal Breath Sounds, No Accessory Muscle Use, No Rales, No Rhonchi , No Wheezing Extremity: Tenderness (mild tenderness to right hip, with surgical scar, no swelling, ecchymosis or deformity), Capillary Refill (<2 seconds), No Deformity , No Swelling Neurological/Psych: Oriented x3, Normal Speech, Normal Motor, Normal Sensation Gait: Steady ED Course And Treatment O2 Sat by Pulse Oximetry: 98 (RA) Pulse Ox Interpretation: Normal Medical Decision Making Medical Decision Making: Impression: URI, knee contusion, hip pain chronic Prior records reviewed: patient last seen and admitted 08/18/17 for UTI, flank pain. Plan: * Xray hip and pelvis * CXR * Flu * percocet Progress: Flu swab negative Xrays viewed by me showing no cardiopulmonary disease. Hip xray shows arthroplasty, no fracture. Patient remained afebrile alert and oriented with stable vital signs during ER evaluation. On re-examination, patient is resting comfortably in no acute distress. Patient reports improvement of symptoms. Patient feels comfortable going home and will be discharged. Patient given follow up instructions. Instructed to return to ER if symptoms worsen or new symptoms arise. Disposition Counseled Patient/Family Regarding: Studies Performed, Diagnosis, Need For Followup, Rx Given - Disposition Referrals: Delmar Ring Jr., MD [Medical Doctor] - Disposition: HOME/ ROUTINE Disposition Time: 08:34 Condition: GOOD Additional Instructions: Vaya a goldsmith mdico o la clnica en 2-5 velez sin falta, para mas evaluacin. [place] los medicamentos brigid indicado. Volver a la jose de emergencia en cualquier momento si los sntomas persisten o empeoran. Prescriptions: Promethazine DM [Phenergan DM Syrup] 10 ml PO Q8 PRN #300 ml PRN Reason: Cough Instructions: Upper Respiratory Infection (ED) Forms: [employer] (Malay) Print Language: CYMRO - POA Present On Arrival: None - Clinical Impression Clinical Impression: Knee contusion, Hip pain, Upper respiratory infection - PA / AUTO RADIATOR MECHANIC / Resident Statement MD/DO has reviewed & agrees with the documentation as recorded. - Scribe Statement The provider has reviewed the documentation as recorded by the Roroibrossi Hunter All medical record entries made by the Scribe were at my direction and personally dictated by me. I have reviewed the chart and agree that the record accurately reflects my personal performance of the history, physical exam, medical decision making, and the department course for this patient. I have also personally directed, reviewed, and agree with the discharge instructions and disposition.
[2017-09-06] MEDS ORDERED: Oxycodone/Acetaminophen 5/325 mg Tab ONE (07:31)
--- NOTE | 2017-09-06 08:23 | RAD ---
HISTORY: COMPARISON: No prior. TECHNIQUE: Chest PA and lateral FINDINGS: LINES AND TUBES: None. LUNG AND PLEURA: The lungs are well inflated and clear. There is linear atelectasis/scarring in the left lower lobe. HEART AND MEDIASTINUM: The heart is not enlarged. The hilar and mediastinal contours are within normal limits. SKELETAL STRUCTURES: The bony structures are within normal limits for the patient's age. VISUALIZED UPPER ABDOMEN: Normal. OTHER FINDINGS: None. IMPRESSION: No active pulmonary disease.
[2017-09-06 08:40] VITALS: BP 122/78; PULSE 79; RESP 18; TEMP 98
--- NOTE | 2017-09-06 10:35 | RAD ---
PROCEDURE: Right Hip Radiographs. HISTORY: pain s.p fall 3 days ago COMPARISON: None. FINDINGS: BONES: The pelvic ring is intact. There is no acute displaced fracture or bone destruction. JOINTS: Status post total right hip arthroplasty. The left hip joint space is preserved. SOFT TISSUES: Normal. There are multiple phleboliths in the pelvis. OTHER FINDINGS: There is mild osteitis pubis. IMPRESSION: Status post total right hip arthroplasty, no acute fracture or dislocation.
[2017-09-06 10:52] VITALS: O2SAT 98
== END 2017-09-06 08:47 | disposition home or self-care (01) ==
LOC: C.ER 07:00
DX: M25.551 Pain in right hip (principal); J06.9 Acute upper respiratory infection, unspecified; S80.01XA Contusion of right knee, initial encounter; W19.XXXA Unspecified fall, initial encounter; M79.7 Fibromyalgia; I12.9 Hypertensive chronic kidney disease with stage 1 through stage 4 chronic kidney disease, or unspecified chronic kidney disease; N18.9 Chronic kidney disease, unspecified; Z96.641 Presence of right artificial hip joint

== ENCOUNTER 2017-12-16 18:24 | Emergency (ER) | payer MEDICARE, OTHER ==
[2017-12-16 18:25] VITALS: BMI 23.3
[2017-12-16 19:04] VITALS: BP 127/84; PULSE 82; RESP 20; TEMP 98.6; O2SAT 96
[2017-12-16 19:42] LABS: SQUAMOUS EPITHIAL 19 /hpf (0-5); URINE BACTERIA OCC (<OCC); URINE BILIRUBIN NEGATIVE (NEGATIVE); URINE BLOOD NEGATIVE (NEGATIVE); URINE CLARITY Hazy (Clear); URINE COLOR Yellow (YELLOW); URINE GLUCOSE (UA) NORMAL (Normal); URINE LEUKOCYTE ESTERASE 3+ Leu/uL (Negative); URINE PROTEIN NEGATIVE (NEGATIVE); URINE UROBILINOGEN NORMAL mg/dL (0.2-1.0)
--- NOTE | 2017-12-16 19:58 | C.PDOC ---
History Of Present Illness 62 year old female presents to ED with complaints of dysuria and frequency for almost one week. She has history of UTI. She tried drinking and water and cranberry juice to help symptoms. She called her PMD Dr Ring who gave appointment for 12/26/17. Patient states she could not wait. Denies any fever, vomiting, hematuria. Time Seen by Provider: 12/16/17 19:30 Chief Complaint (Nursing): Female Genitourinary History Per: Patient History/Exam Limitations: no limitations Onset/Duration Of Symptoms: Days Current Symptoms Are (Timing): Still Present Past Medical History Reviewed: Historical Data, Nursing Documentation, Vital Signs Vital Signs: Last Vital Signs Temp 98.6 F 12/16/17 19:02 Pulse 82 12/16/17 19:02 Resp 20 12/16/17 19:02 BP 127/84 12/16/17 19:02 Pulse Ox 96 12/16/17 20:55 - Medical History PMH: Anxiety, Arthritis (BACK B/L KNEES R HIP), Fibromyalgia, Fractures (right hip), Gastritis, Gall Bladder Disease, HTN, Kidney Stones, Chronic Kidney Disease Surgical History: Appendectomy, Back Surgery, Cholecystectomy, Endoscopy Family History: States: No Known Family Hx - Social History Hx Alcohol Use: No Hx Substance Use: No - Immunization History Hx Tetanus Toxoid Vaccination: No Hx Influenza Vaccination: Yes (06/2017) Hx Pneumococcal Vaccination: No Review Of Systems Constitutional: Negative for: Fever, Chills Cardiovascular: Positive for: Chest Pain. Negative for: Palpitations Respiratory: Negative for: Cough, Shortness of Breath Gastrointestinal: Negative for: Vomiting, Abdominal Pain Genitourinary: Positive for: Dysuria, Frequency. Negative for: Hematuria Physical Exam - Physical Exam Appears: Non-toxic, Other (Uncomfortable) Skin: Warm, Dry, No Rash Head: Atraumatic, Normacephalic Eye(s): bilateral: Normal Inspection, EOMI Oral Mucosa: Moist Neck: Normal ROM, Supple Cardiovascular: Rhythm Regular Respiratory: Normal Breath Sounds, No Rales, No Rhonchi, No Wheezing Gastrointestinal/Abdominal: Soft, No Tenderness, No Guarding, No Rebound Back: Normal Inspection, No CVA Tenderness Extremity: Normal ROM, Capillary Refill (<2 seconds) Neurological/Psych: Oriented x3, Normal Speech ED Course And Treatment O2 Sat by Pulse Oximetry: 96 (RA) Pulse Ox Interpretation: Normal Medical Decision Making Medical Decision Making: Impression: dysuria Plan: Pyridium, UA and culture Progress: 1954 UA shows WBCs, LE and RBCs. Will treat with Cipro. Patient informed of urine results. Rx given. Advise to continue with antibiotics, drink fluids and to follow up with PMD Disposition Counseled Patient/Family Regarding: Diagnosis, Need For Followup - Disposition Referrals: Delmar Ring Jr., MD [Medical Doctor] - Disposition: HOME/ ROUTINE Disposition Time: 19:57 Condition: GOOD Additional Instructions: Your Rx sent to [facility] in [place] Take Pyridium for any urinary pain/discomfort Take antibiotic Cipro twice daily and be sure to finish taking all of antibiotic. Drink plenty of fluids. If urine culture was performed, call back for results in 2-3 days for results to confirm antibiotic is treating UTI well. Prescriptions: Ciprofloxacin [Cipro] 1 tab PO BID #14 tab Phenazopyridine [Pyridium] 2 tab PO Q8 #9 tab Instructions: Urinary Tract Infection, Adult (DC) Forms: [employer] ([place]an) Print Language: [place] - POA Present On Arrival: None - Clinical Impression Clinical Impression: UTI (urinary tract infection) - PA / OWNER PROFESSIONAL ENGINEER / Resident Statement MD/DO has reviewed & agrees with the documentation as recorded. - Scribe Statement The provider has reviewed the documentation as recorded by the Hubert Hunter All medical record entries made by the Hubert were at my direction and personally dictated by me. I have reviewed the chart and agree that the record accurately reflects my personal performance of the history, physical exam, medical decision making, and the department course for this patient. I have also personally directed, reviewed, and agree with the discharge instructions and disposition.
== END 2017-12-16 20:28 | disposition home or self-care (01) ==
LOC: C.ER 18:24
DX: N39.0 Urinary tract infection, site not specified (principal)

== ENCOUNTER 2018-03-06 06:49 | Day surgery (SDC) | payer MEDICARE, MEDICAID ==
[2018-03-06] MEDS ORDERED: Propofol 10 mg/ml Inj (20 ML) ONE (08:30)
[2018-03-06] MEDS ORDERED: Midazolam 2 MG/2 ML VIAL ONE ×2 (08:30→09:59)
[2018-03-06] MEDS ORDERED: Lidocaine 2% Jelly (Uro-Jet) ONE (09:15)
[2018-03-06] MEDS ORDERED: cefTRIAXone IV 1 gm in Dextros 50 ML IVPB ONE (09:15)
[2018-03-06] MEDS: HYDROmorphone 0.5 mg/0.5 ml ISec IVP PRN ×2 (10:30→10:50)
[2018-03-06] MEDS ORDERED: Lactated Ringer's 1,000 ML IV ONE (11:18)
[2018-03-06 13:21] VITALS: BP 118/70; PULSE 71; RESP 18; TEMP 97.8; O2SAT 97
--- NOTE | 2018-03-06 21:52 | OP ---
PROCEDURE DATE: 03/06/2018 TIME OF DICTATION: Roughly 10:19 a.m. PREOPERATIVE DIAGNOSIS: Pelvic pain and microscopic hematuria. PROCEDURE: Cystoscopy, bladder biopsy, fulguration of biopsy site. DESCRIPTION OF PROCEDURE: The patient was placed on the cystoscopy table in the dorsal lithotomy position, prepped and draped in the usual sterile fashion with Betadine solution. Under adequate IV sedation with nurse vibrator operator, approximately 10 mL of 2% Xylocaine jelly was injected intraurethrally, followed by insertion of a #22-Lao Storz cystoscope into the bladder. Using sterile water as the irrigated solution through out the entire procedure, the bladder was examined in all four quadrants. There were no foreign bodies seen in the bladder. The bladder mucosa, especially on the posterior wall appeared to be quite injected, and there was a suspicious area seen on the mid posterior wall which was biopsied. Specimen placed in Formalin and sent to pathology. The biopsy site was then fulgurated with the coagulating current set at 35 sharma throughout the procedure. Both ureteral orifices were normal, Normal configuration on the trigone with clear efflux bilaterally. The dome and lateral sorto appeared to be relatively free of injected areas with increased vascularity only seen mostly on the posterior wall. At the end of the procedure, the bladder was thoroughly irrigated with a Carlene syringe with clear return. The patient tolerated the procedure well with 10 mL of blood loss and was brought to the recovery area in satisfactory condition. Plan for this patient will be to discharge the patient home on some antibiotics, which could include Ceftin 500 mg b.i.d. for at least one week and Pyridium 200 mg p.o. t.i.d. on a p.r.n. basis and some antiinflammatory medication, which could include ibuprofen 400 mg every 6 hours with food and milk on a p.r.n. basis. The patient will be seen in office followup in about two weeks. Urine was sent for culture and sensitivity at the start of the procedure. Stevenson Dumont MD
== END 2018-03-06 14:30 | disposition home or self-care (01) ==
LOC: C.SDS 06:49
PROVIDERS: ATTEND Urology
DX: R31.29 Other microscopic hematuria (principal); R10.2 Pelvic and perineal pain
CPT/HCPCS: 52204; 82948; 87086; 88305; J7120

== ENCOUNTER 2018-03-13 14:10 | Emergency (ER) | payer MEDICARE, MEDICAID ==
[2018-03-13 14:10] VITALS: BMI 23.3
[2018-03-13 14:45] VITALS: RESP 20; O2SAT 98
[2018-03-13 15:52] LABS: BASO % 0.6 % (0.0-2.0); EOS # 0.1 K/uL (0.0-0.7); EOS % 1.7 % (0.0-4.0); LYMPH # 1.7 K/uL (1.0-4.3); LYMPH % 22.3 % (20.0-40.0); MEAN CORPUSCULAR HEMOGLOBIN 29.8 pg (27.0-31.0); MONO # 0.5 K/uL (0.0-0.8); MONO % 6.9 % (0.0-10.0); NEUT # 5.1 K/uL (1.8-7.0); NEUT % 68.5 % (50.0-75.0); NRBC % 0.3 % (0.0-2.0); RBC 5.52 Mil/uL (3.80-5.20); RED CELL DISTRIBUTION WIDTH 12.7 % (11.5-14.5); WHITE BLOOD COUNT 7.5 K/uL (4.8-10.8)
[2018-03-13 16:03] LABS: HEMOGLOBIN 16.4 g/dL (11.0-16.0); MEAN CELL VOLUME 87.6 fL (81.0-99.0)
[2018-03-13 16:06] LABS: ALB/GLOB RATIO 1.4 (1.0-2.1); ALBUMIN 4.6 g/dL (3.5-5.0); ALT/SGPT 50 U/L (9-52); AST/SGOT 30 U/L (14-36); BLOOD UREA NITROGEN 20 mg/dL (7-17); CALCIUM 9.8 mg/dl (8.6-10.4); GFR AFRICAN-AMERICAN > 60; GFR NON-AFRICAN AMERICAN > 60; LIPASE 37 U/L (23-300)
[2018-03-13 16:18] LABS: B-TYPE NATRIURETIC PEPTIDE 42.5 pg/mL (0-900)
[2018-03-13 16:48] LABS: URINE BILIRUBIN NEGATIVE (NEGATIVE); URINE BLOOD 2+ (NEGATIVE); URINE CLARITY Clear (Clear); URINE COLOR Yellow (YELLOW); URINE GLUCOSE (UA) NORMAL (Normal); URINE LEUKOCYTE ESTERASE NEG Leu/uL (Negative); URINE PROTEIN NEGATIVE (NEGATIVE); URINE UROBILINOGEN NORMAL mg/dL (0.2-1.0)
[2018-03-13] MEDS ORDERED: Iohexol 300 100 ML IJ ONE (17:21)
--- NOTE | 2018-03-13 17:48 | C.PDOC ---
History Of Present Illness 62 year old female, who is s/p cystoscopy one week ago by Dr. Dumont, presents to the ED for evaluation of increasing difficulty and pain with urination since the procedure. Patient reports decreased urination and states her abdomen appears distended. Patient also reports associated tactile fever and nausea. Patient denies nausea, vomiting, diarrhea. Time Seen by Provider: 03/13/18 15:01 Chief Complaint (Nursing): Female Genitourinary History Per: Patient History/Exam Limitations: no limitations Onset/Duration Of Symptoms: Days Current Symptoms Are (Timing): Still Present Quality Of Discomfort: "Pain" Associated Symptoms: Urinary Symptoms Additional History Per: Patient Abnormal Vaginal Bleeding: No Past Medical History Reviewed: Historical Data, Nursing Documentation, Vital Signs Vital Signs: Last Vital Signs Temp 98.1 F 03/13/18 14:34 Pulse 84 03/13/18 14:34 Resp 20 03/13/18 14:34 BP 101/71 03/13/18 14:34 Pulse Ox 98 03/13/18 18:15 - Medical History PMH: Anxiety, Arthritis (BACK B/L KNEES R HIP), Fibromyalgia, Fractures (RIGHT HIP), Gastritis, Gall Bladder Disease, HTN, Kidney Stones, Chronic Kidney Disease Surgical History: Appendectomy, Back Surgery, Cholecystectomy, Endoscopy Family History: States: Unknown Family Hx - Social History Hx Alcohol Use: No Hx Substance Use: No - Immunization History Hx Tetanus Toxoid Vaccination: No Hx Influenza Vaccination: Yes (06/2017) Hx Pneumococcal Vaccination: No Review Of Systems Constitutional: Positive for: Fever Gastrointestinal: Positive for: Nausea, Abdominal Pain Genitourinary: Positive for: Dysuria Physical Exam - Physical Exam Appears: Non-toxic, No Acute Distress Skin: Normal Color, Warm, Dry Head: Atraumatic, Normacephalic Eye(s): bilateral: Normal Inspection Oral Mucosa: Moist Neck: Supple Chest: Symmetrical, No Deformity, No Tenderness Cardiovascular: Rhythm Regular, No Murmur Respiratory: Normal Breath Sounds, No Rales, No Rhonchi, No Wheezing Extremity: Normal ROM, Capillary Refill (less than 2 seconds ) ED Course And Treatment - Laboratory Results Result Diagrams: 03/13/18 15:46 03/13/18 15:46 ECG: Interpreted By Me, Viewed By Me ECG Rhythm: Sinus Rhythm Interpretation Of ECG: Normal Sinus Rhythm at rate 70bpm. Normal intervals, normal axis. Nonspecific T wave changes. Rate From EC O2 Sat by Pulse Oximetry: 98 (on RA) Pulse Ox Interpretation: Normal Medical Decision Making Medical Decision Making: Assessment: 62 year old female with abdominal pain Plan: * bloodwork * urinalysis * CT A/P * Morphine IVP * Pepcid IVP * Zofran IVP * reassess and disposition Progress: Bloodwork, labs, CT A/P ordered and reviewed. Morphine IVP, Pepcid IVP, and Zofran IVP administered. 1817 - suarez placed with urine flow patient in urinary retention case discussed with DR. Dumont and patient to have suarez in place and he will see patient in office tomorrow. Will discharge to follow up accordingly. Disposition Discussed With Dr.: Stevenson Dumont Doctor Will See Patient In The: Office Counseled Patient/Family Regarding: Studies Performed, Diagnosis, Need For Followup, Rx Given - Disposition Referrals: Stevenson Dumont MD [Staff Provider] - Disposition: HOME/ ROUTINE Disposition Time: 18:22 Condition: STABLE Additional Instructions: follow up with DR. Dumont tomorrow morning call office in AM take medication as prescribed return to ER if symptoms worsens or progress Prescriptions: Ciprofloxacin HCl [Cipro] 500 mg PO BID #14 tab Instructions: Urinary Retention (DC) Forms: Gen Discharge Inst Micronesian, [employer] (Micronesian) Print Language: BENGALI - Clinical Impression Clinical Impression: Urinary retention - Scribe Statement The provider has reviewed the documentation as recorded by the Scribe (Dominique Lora) Provider Attestation: All medical record entries made by the Scribe were at my direction and personally dictated by me. I have reviewed the chart and agree that the record accurately reflects my personal performance of the history, physical exam, medical decision making, and the department course for this patient. I have also personally directed, reviewed, and agree with the discharge instructions and disposition.
--- NOTE | 2018-03-13 18:03 | CT ---
PROCEDURE: CT Abdomen and Pelvis with contrast HISTORY: Abdominal pain COMPARISON: 08/18/2017. TECHNIQUE: CT scan of the abdomen and pelvis was performed after administration of intravenous contrast. Oral contrast was not administered. Coronal and sagittal reformatted images were obtained. Contrast dose: 100 mL Omnipaque 300 Radiation dose: Total exam DLP = 385.46 mGy-cm. This CT exam was performed using one or more of the following dose reduction techniques: Automated exposure control, adjustment of the mA and/or kV according to patient size, and/or use of iterative reconstruction technique. FINDINGS: LOWER THORAX: There is subsegmental atelectasis in the lingula and both lower lobes. LIVER: Normal in size with homogeneous enhancement. No gross lesion. GALLBLADDER AND BILE DUCTS: The gallbladder is surgically absent. Mild intra and extrahepatic biliary ductal dilatation is in keeping with postcholecystectomy status. PANCREAS: Mild fatty atrophy and homogeneous enhancement. No gross lesion or ductal dilatation. SPLEEN: Normal in size and appearance. ADRENALS: No discrete nodule. KIDNEYS AND URETERS: Normal in size with homogeneous enhancement. There are stable simple cysts in the right kidney. No hydronephrosis. No solid mass. VASCULATURE: No aortic aneurysm. BOWEL: The small bowel loops are normal in caliber. There is fecalization of distal small bowel contents. There is moderate amount of stool in the colon. No bowel obstruction. APPENDIX: Surgically absent. PERITONEUM: Unremarkable. No free fluid. No free air. LYMPH NODES: Unremarkable. No enlarged lymph nodes. BLADDER: Indwelling José catheter with subsequent decompression. REPRODUCTIVE: The uterus is surgically absent. BONES: No acute fracture. Diffuse bone demineralization. Status post right hip arthroplasty. OTHER FINDINGS: There is a small sliding hiatal hernia IMPRESSION: No acute abdominal or pelvic abnormality. Constipation with fecal stasis in the distal small bowel. No bowel obstruction.
[2018-03-13 18:52] VITALS: BP 116/77; PULSE 62; TEMP 98.2
--- NOTE | 2018-03-14 17:15 | CARD ---
APPROVED REPORT EKG Measurement Heart [id number] <Conclusion> Normal sinus rhythm Nonspecific T wave abnormality Abnormal ECG
== END 2018-03-13 19:07 | disposition home or self-care (01) ==
LOC: C.ER 14:10
DX: R33.9 Retention of urine, unspecified (principal); I12.9 Hypertensive chronic kidney disease with stage 1 through stage 4 chronic kidney disease, or unspecified chronic kidney disease; N18.9 Chronic kidney disease, unspecified; M79.7 Fibromyalgia
CPT/HCPCS: 74177; 80053; 81001; 83690; 83880; 84484; 85025; 87086; 93005; 96374; 96375; 99285; J2270; J2405; Q9967